=== PATIENT | male | born 1975 | race Two or more races ===

== ENCOUNTER 2021-04-15 10:39 | Emergency (ER) | payer OTHER ==
[~2021-04-15] VITALS: Ht 180.3 cm; Wt 84.4 kg
[2021-04-15] MEDS ORDERED: KETO10TA2 PO (10:50)
== END 2021-04-15 17:45 | disposition home or self-care (01) ==
LOC: ER 10:39
DX: R10.12 Left upper quadrant pain (principal); R10.32 Left lower quadrant pain

== ENCOUNTER 2021-04-18 07:04 | Inpatient (IN) | payer OTHER ==
[~2021-04-18] VITALS: Ht 180.3 cm; Wt 84.4 kg
[~2021-04-18 07:04] MED LIST: KETO10TA2 PO
[2021-04-18] MEDS ORDERED: TAMSULOSIN HCL0.4 MG PO (07:28)
[2021-04-18] MEDS ORDERED: PERCOCET 10-321 EACH PO (07:40)
[2021-04-19] MEDS ORDERED: MELOXICAM15 MG PO (20:12)
[2021-04-19] MEDS ORDERED: CEPHALEXIN500 MG PO (20:13)
== END 2021-04-19 21:03 | disposition home or self-care (01) | DRG 661 ==
LOC: ER 07:04 → SURH 23:28
PROVIDERS: ADMIT Surgery; ATTEND Surgery
PROC: 0T778DZ Dilation of Left Ureter with Intraluminal Device, Via Natural or Artificial Opening Endoscopic (ICD-10-PCS; principal; 2021-04-19 13:00)
DX: N20.1 Calculus of ureter (principal)